=== PATIENT | female | born 1985 | race Caucasian/White ===

== ENCOUNTER 2019-11-27 12:42 | Observation (INO) | payer MEDICAID ==
[~2019-11-27] VITALS: Ht 162.6 cm; Wt 54.2 kg
[~2019-11-27 12:42] MED LIST: LEVO1TAB5 PO; S-AD400T3 PO; [UNRECOGNIZED DRUG - OTHER] PO
[2019-11-27 13:30] LABS: BASOPHILS # (AUTO) 0.02 x10^3/uL (0-0.1); BASOPHILS % (AUTO) 1 % (0-1); EOSINOPHILS # (AUTO) 0.04 x10^3/uL (0-0.4); EOSINOPHILS % (AUTO) 1 % (1-7); LYMPHOCYTES # (AUTO) 1.42 x10^3/uL (1-3.4); LYMPHOCYTES % (AUTO) 29 % (22-44); MD NO; MEAN CORPUSCULAR HEMOGLOBIN 30.8 pg (27.0-34.8); MEAN CORPUSCULAR HGB CONC 33.7 g/dL (32.4-35.8); MEAN CORPUSCULAR VOLUME 91.2 fL (80-100); MEAN PLATELET VOLUME 10.6 fL (7.4-10.4); MONOCYTES # (AUTO) 0.36 x10^3/uL (0.2-0.8); MONOCYTES % (AUTO) 7 % (2-9); NEUTROPHILS # (AUTO) 3.08 x10^3/uL (1.8-6.8); NEUTROPHILS % (AUTO) 63 % (42-75); PLATELET COUNT 181 x10^3/uL (130-400); RED CELL DISTRIBUTION WIDTH 12.7 % (9.6-15.2)
--- NOTE | 2019-11-27 13:38 | NUR ---
FIRST CONTACT WITH PT. PT STATES "I'M HAVING A BAD REACTION TO A MEDICATION. IT WAS GENERIC LEXAPRO. I STARTED TAKING IT ABOUT 2 WEEKS AGO. 10 MGS FIRST WEEK AND 20 MG THE SECOND WEEK. THE TWITCHING STARTED SUNDAY." PT STOP TAKING IT ON SUNDAY. PT DENIES ANY OTHER SYMPTOMS. PT'S AOX4. RESPS EVEN AND UNLABORED. BP/SPO2 MONITORS IN PLACE. CALL LIGHT WITHIN REACH.
[2019-11-27 13:42] LABS: ALANINE AMINOTRANSFERASE 18 U/L (12-78); ALBUMIN 3.5 g/dL (3.4-5.0); ANION GAP 8 mmol/L (5-15); CALCIUM 8.3 mg/dL (8.5-10.1); CHLORIDE 107 mmol/L (98-107); CREATININE 0.86 mg/dL (0.55-1.02)
[2019-11-27 13:46] LABS: ALKALINE PHOSPHATASE 71 U/L (45-117); BILIRUBIN,TOTAL 0.6 mg/dL (0.2-1.0); TOTAL PROTEIN 7.1 g/dL (6.4-8.2)
--- NOTE | 2019-11-27 14:23 | NUR ---
edmd at bedside to evaluate at this time.
[2019-11-27] MEDS ORDERED: LORazepam 1MG TABLET ONE (14:28)
--- NOTE | 2019-11-27 14:46 | NUR ---
PT MEDICATED PER EMAR. PT TOLERATED WELL.
--- NOTE | 2019-11-27 14:48 | NUR ---
medication ordered from pharmacy at this time.
[2019-11-27] MEDS ORDERED: LORazepam 1MG TABLET PO ONE (15:00)
[2019-11-27] MEDS ORDERED: BENZTROPINE 1 MG/ML, 2 ML IM ONE (15:00)
--- NOTE | 2019-11-27 15:06 | NUR ---
PT MEDICATED PER EMAR. PT TOLERATED WELL.
--- NOTE | 2019-11-27 15:49 | NUR ---
pt resting in [facility]. pt's aox4. resps even and unlabored. pt states"i feel much better."
--- NOTE | 2019-11-27 16:51 | NUR ---
PT AMB TO BR AND BACK TO ROOM WITH STEADY GAIT.
[2019-11-27] MEDS ORDERED: ACETAMINOPHEN 325 MG TABLET PO PRN (17:30)
--- NOTE | 2019-11-27 18:16 | NUR ---
report given to cheryle momin. all questions answered.
[2019-11-27 18:44] VITALS: BP 106/72
[2019-11-27] MEDS: SODIUM CHLORIDE 0.9% 1,000 ML IV SCH (18:48)
[2019-11-27 20:05] VITALS: BP 100/62
[2019-11-27] MEDS: LORazepam 1MG TABLET PO PRN (20:25)
[2019-11-27] MEDS: BENZTROPINE 1 MG TABLET PO SCH (20:25)
[2019-11-28 02:31] VITALS: BP 103/67
[2019-11-28] MEDS: SODIUM CHLORIDE 0.9% 1,000 ML IV SCH ×3 (03:03→17:02)
[2019-11-28] MEDS: LORazepam 1MG TABLET PO PRN (05:11)
[2019-11-28 06:39] VITALS: BP 98/61
[2019-11-28] MEDS: BENZTROPINE 1 MG TABLET PO SCH (09:44)
[2019-11-28 13:43] VITALS: BP 109/69
[2019-11-28] MEDS ORDERED: ACET325T26 PO (17:37)
[2019-11-28] MEDS ORDERED: LORA-446 PO (17:37)
[2019-11-28] MEDS ORDERED: BENZ1TAB61 PO (17:37)
== END 2019-11-28 19:22 | disposition home or self-care (01) ==
LOC: ED 15:18 → INTOOBSV 16:25 → UNDOADMOB 16:25 → EDIP 16:25 → 4WST 18:29
PROVIDERS: ADMIT Internal Medicine Infectious Disease; ATTEND Internal Medicine Infectious Disease
DX: G24.9 Dystonia, unspecified (principal); F32.9 Major depressive disorder, single episode, unspecified; F12.90 Cannabis use, unspecified, uncomplicated; Z79.899 Other long term (current) drug therapy; F41.9 Anxiety disorder, unspecified
CPT/HCPCS: 36415; 80053; 84703; 85025; 96372; 99284; G0378; J0515; J7030